=== PATIENT | female | born 1985 | race Caucasian/White ===

== ENCOUNTER 2016-12-23 22:43 | Emergency (ER) | payer SELFPAY ==
[~2016-12-23] VITALS: Ht 170.2 cm; Wt 89.0 kg
[2016-12-23 22:45] VITALS: BP 177/103; PULSE 98; RESP 16; TEMP 98.9; O2SAT 100
[2016-12-23 22:48] VITALS: BP 168/88; PULSE 88; RESP 20; O2SAT 98
[2016-12-23 23:53] LABS: AUTOMATED NEUTROPHIL # 8.8 TH/MM3 (1.8-7.7); BASOPHIL % 0.3 % (0.0-2.0); EOSINOPHIL # 0.1 TH/MM3 (0-0.4); EOSINOPHIL % 0.6 % (0.0-4.0); HEMATOCRIT 41.9 % (35.0-46.0); HEMO FLAGS DIFF FINAL; LYMPH % 18.8 % (9.0-44.0); LYMPHOCYTE # 2.2 TH/MM3 (1.0-4.8); MEAN CELL VOLUME 79.6 FL (80.0-100.0); MEAN CORPUSCULAR HEMOGLOBIN 25.9 PG (27.0-34.0); MEAN CORPUSCULAR HGB CONC 32.5 % (32.0-36.0); MONO % 5.5 % (0.0-8.0); NEUT % 74.8 % (16.0-70.0); PLATELET COUNT 339 TH/MM3 (150-450); RED BLOOD COUNT 5.26 MIL/MM3 (4.00-5.30); RED CELL DISTRIBUTION WIDTH 16.2 % (11.6-17.2); WHITE BLOOD COUNT 11.8 TH/MM3 (4.0-11.0)
--- NOTE | 2016-12-23 23:55 | PD ---
HPI Chief Complaint: Psychiatric Symptoms Time Seen by Provider: 23:48 Travel History International Travel<30 days: No Contact w/Intl Traveler<30days: No Traveled to known affect area: No History of Present Illness HPI 31-year-old white female presents to emergency department for psychological evaluation. She states that she's been feeling increasingly depressed and having suicidal thoughts. She states that she suffers from depression and anxiety. She moved from [place] to [place] one month ago. She states that she came to [place] to be with her boyfriend who lives in [place]. She states that he has a history of substance abuse. He is addicted to methamphetamine. She states that he has been trying to kick the habit and has been becoming distant and she feels that this is stressing their relationship. This has caused her to feel more depressed. She states that she herself had a history of substance abuse but has been off drugs now for the last few years. She used to do cocaine. Patient currently states that she does not want to live anymore. She has no active plan on self-harm. She does smoke cigarettes and drink alcohol on occasion. She states that her last period was irregular and could be . She has had some nausea. She denies any fever chills. No chest pain or shortness of breath. No vomiting. No abdominal pain. No urine symptoms. No toxic ingestions. PFSH Past Medical History Narrative Medical Depression, anxiety, pulmonic stenosis, valvular heart disease with reflux, substance abuse, history of seizures Depression: Yes Cardiovascular Problems: Yes (PULMONARY STENOSIS) Seizures: Yes Tetanus Vaccination: < 5 Years Influenza Vaccination: No ?: Not Past Surgical History Narrative Surgical Laparoscopy for ovarian cysts Gynecologic Surgery: Yes Social History Alcohol Use: Yes Tobacco Use: Yes Substance Use: No Allergies-Medications (Allergen,Severity, Reaction): Coded Allergies: Keflex (Verified Allergy, Intermediate, 12/23/16) Reported Meds & Prescriptions Reported Meds & Active Scripts Active No Active Prescriptions or Reported Medications Review of Systems Except as stated in HPI: all other systems reviewed are Neg Psychiatric: Positive: Anxiety, Depression, Suicidal Ideations, Mood Disorder, No: Disorder of Thought, Substance Abuse, Homicidal Ideation Physical Exam Narrative GENERAL: Well-nourished, well-developed patient. SKIN: Warm and dry. HEAD: Normocephalic and atraumatic. EYES: No scleral icterus. No injection or drainage. ENT: No nasal drainage noted. Mucous membranes pink. Airway patent. NECK: Supple, trachea midline. Moves head freely without obvious discomfort. CARDIOVASCULAR: Regular rate and rhythm without murmurs, gallops, or rubs. RESPIRATORY: Breath sounds equal bilaterally. No accessory muscle use. GASTROINTESTINAL: Abdomen soft, non-tender, nondistended. EXTREMITIES: No cyanosis or edema. BACK: Nontender without obvious deformity. No CVA tenderness. NEURO: Patient is alert and oriented. no sensorimotor deficits. Nonfocal. Normal speech. PSYCH: No delusions. No auditory or visual hallucinations. Data Data Last Documented VS Vital Signs Date Time Temp Pulse Resp B/P Pulse Ox O2 Delivery O2 Flow Rate FiO2 12/24/16 18:32 100 18 168/86 100 Room Air 12/23/16 22:45 98.9 Orders Complete Blood Count With Diff (12/23/16 23:08) Comprehensive Metabolic Panel (12/23/16 23:08) Ed Urine Pregnancytest Poc (12/23/16 23:08) Psych Screen (12/23/16 23:08) Drug Screen, Random Urine (12/23/16 23:08) Alcohol (Ethanol) (12/23/16 23:08) Salicylates (Aspirin) (12/23/16 23:08) Tylenol (Acetaminophen) (12/23/16 23:08) Lorazepam (Ativan) (12/24/16 01:00) Potassium Chloride (Kcl) (12/24/16 01:00) Diet Regular Basic (12/24/16 Breakfast) Diet Regular Basic (12/24/16 Lunch) Diet Regular Basic (12/24/16 Dinner) Lorazepam (Ativan) (12/24/16 18:00) Labs Laboratory Tests Test 12/23/16 12/24/16 23:00 00:45 White Blood Count 11.8 TH/MM3 Red Blood Count 5.26 MIL/MM3 Hemoglobin 13.6 GM/DL Hematocrit 41.9 % Mean Corpuscular Volume 79.6 FL Mean Corpuscular Hemoglobin 25.9 PG Mean Corpuscular Hemoglobin 32.5 % Concent Red Cell Distribution Width 16.2 % Platelet Count 339 TH/MM3 Mean Platelet Volume 7.4 FL Neutrophils (%) (Auto) 74.8 % Lymphocytes (%) (Auto) 18.8 % Monocytes (%) (Auto) 5.5 % Eosinophils (%) (Auto) 0.6 % Basophils (%) (Auto) 0.3 % Neutrophils # (Auto) 8.8 TH/MM3 Lymphocytes # (Auto) 2.2 TH/MM3 Monocytes # (Auto) 0.7 TH/MM3 Eosinophils # (Auto) 0.1 TH/MM3 Basophils # (Auto) 0.0 TH/MM3 CBC Comment DIFF FINAL Differential Comment Sodium Level 141 MEQ/L Potassium Level 3.2 MEQ/L Chloride Level 109 MEQ/L Carbon Dioxide Level 21.6 MEQ/L Anion Gap 10 MEQ/L Blood Urea Nitrogen 9 MG/DL Creatinine 1.10 MG/DL Estimat Glomerular Filtration 58 ML/MIN Rate Random Glucose 106 MG/DL Calcium Level 9.3 MG/DL Total Bilirubin 1.3 MG/DL Aspartate Amino Transf 11 U/L (AST/SGOT) Alanine Aminotransferase 23 U/L (ALT/SGPT) Alkaline Phosphatase 74 U/L Total Protein 7.9 GM/DL Albumin 3.7 GM/DL Salicylates Level LESS THAN 1.7 MG/DL Acetaminophen Level LESS THAN 2.0 MCG/ML Ethyl Alcohol Level LESS THAN 3 MG/DL Urine Opiates Screen NEG Urine Barbiturates Screen NEG Urine Amphetamines Screen NEG Urine Benzodiazepines Screen NEG Urine Cocaine Screen NEG Urine Cannabinoids Screen NEG MDM Medical Decision Making Medical Screen Exam Complete: Yes Emergency Medical Condition: Yes Medical Record Reviewed: Yes Interpretation(s) Laboratory Tests Test 12/23/16 12/24/16 23:00 00:45 White Blood Count 11.8 TH/MM3 Red Blood Count 5.26 MIL/MM3 Hemoglobin 13.6 GM/DL Hematocrit 41.9 % Mean Corpuscular Volume 79.6 FL Mean Corpuscular Hemoglobin 25.9 PG Mean Corpuscular Hemoglobin 32.5 % Concent Red Cell Distribution Width 16.2 % Platelet Count 339 TH/MM3 Mean Platelet Volume 7.4 FL Neutrophils (%) (Auto) 74.8 % Lymphocytes (%) (Auto) 18.8 % Monocytes (%) (Auto) 5.5 % Eosinophils (%) (Auto) 0.6 % Basophils (%) (Auto) 0.3 % Neutrophils # (Auto) 8.8 TH/MM3 Lymphocytes # (Auto) 2.2 TH/MM3 Monocytes # (Auto) 0.7 TH/MM3 Eosinophils # (Auto) 0.1 TH/MM3 Basophils # (Auto) 0.0 TH/MM3 CBC Comment DIFF FINAL Differential Comment Sodium Level 141 MEQ/L Potassium Level 3.2 MEQ/L Chloride Level 109 MEQ/L Carbon Dioxide Level 21.6 MEQ/L Anion Gap 10 MEQ/L Blood Urea Nitrogen 9 MG/DL Creatinine 1.10 MG/DL Estimat Glomerular Filtration 58 ML/MIN Rate Random Glucose 106 MG/DL Calcium Level 9.3 MG/DL Total Bilirubin 1.3 MG/DL Aspartate Amino Transf 11 U/L (AST/SGOT) Alanine Aminotransferase 23 U/L (ALT/SGPT) Alkaline Phosphatase 74 U/L Total Protein 7.9 GM/DL Albumin 3.7 GM/DL Salicylates Level LESS THAN 1.7 MG/DL Acetaminophen Level LESS THAN 2.0 MCG/ML Ethyl Alcohol Level LESS THAN 3 MG/DL Urine Opiates Screen NEG Urine Barbiturates Screen NEG Urine Amphetamines Screen NEG Urine Benzodiazepines Screen NEG Urine Cocaine Screen NEG Urine Cannabinoids Screen NEG Differential Diagnosis MDM: High Differential diagnoses: Schizophrenia, schizoaffective disorder, bipolar, anxiety, depression, adjustment reaction, mood disorder NOS, ODD, depressive disorder NOS, dementia, dementia with agitation, psychosis NOS, substance induced mood disorder, intermittent explosive disorder, Asperger syndrome, infection,electrolyte abnormality, malingering. Narrative Course Mental health screening discussed with the patient. Psychiatric screen ordered. The patient is been medically cleared. Medical clearance Diagnosis Primary Impression: Medical clearance for psychiatric admission Scripts No Active Prescriptions or Reported Meds Condition: Stable Jase Vitale Dec 23, 2016 23:55 Jase Vitale Dec 23, 2016 23:55
[2016-12-24 00:07] LABS: ALT (GPT) 23 U/L (10-53); ANION GAP 10 MEQ/L (5-15); AST (GOT) 11 U/L (15-37); BICARBONATE 21.6 MEQ/L (21.0-32.0); BLOOD UREA NITROGEN 9 MG/DL (7-18); CHLORIDE 109 MEQ/L (98-107); GLOMERULAR FILTRATION RATE 58 ML/MIN (>89); POTASSIUM 3.2 MEQ/L (3.5-5.1); SODIUM (NA) 141 MEQ/L (136-145)
[2016-12-24 00:10] LABS: ALKALINE PHOSPHATASE 74 U/L (45-117); TOTAL BILIRUBIN ADULT 1.3 MG/DL (0.2-1.0)
[2016-12-24 00:14] LABS: ACETAMINOPHEN LESS THAN 2.0 MCG/ML (10.0-30.0)
[2016-12-24] MEDS ORDERED: LORazepam 1 MG TAB PO ONE ×2 (01:00→18:00)
[2016-12-24] MEDS ORDERED: POTASSIUM CHLORIDE 20 MEQ CONTROLLED RELEASE TAB PO ONE (01:00)
[2016-12-24 01:20] LABS: AMPHETAMINE, URINE NEG (NEG); BARBITURATES, URINE NEG (NEG); COCAINE, URINE NEG (NEG)
[2016-12-24 03:33] VITALS: BP 142/82; PULSE 82; RESP 15; O2SAT 99
[2016-12-24 06:11] VITALS: BP 131/73; PULSE 89; RESP 18
[2016-12-24 10:45] VITALS: BP 120/78; PULSE 89; RESP 18; O2SAT 99
[2016-12-24 18:32] VITALS: BP 168/86; PULSE 100; RESP 18; O2SAT 100
--- NOTE | 2016-12-25 06:24 | MB ---
cc: FRANCISCO J CREWS DATE OF CONSULTATION 12/24/2016 PHYSICIAN REQUESTING CONSULTATION Emergency department. REASON FOR CONSULTATION Voluntary psychiatric evaluation. HISTORY OF PRESENT ILLNESS Ms. Solorio is a 31-year-old female who presented to the emergency department for voluntary psychiatric evaluation. She told the emergency department physician that she was feeling increasingly depressed and having suicidal thoughts. Reviewing the electronic medical record, I see no prior psychiatric contact within our system. It appears this is the patient's first visit to [place]. The patient was seen and examined, chart reviewed, her case discussed with nursing staff. There has been no evidence of any suicidality or homicidality despite over 18 hours of observation in the emergency department. On my evaluation today, the patient reports that she is starting to feel better. She apparently was feeling acutely distressed because she had come down from [place] to be with her boyfriend, but her boyfriend is addicted to methamphetamines and she no longer wishes to be with him. She says that she has been on the telephone with her mother while in the emergency department and has made plans to return to her home in [place] where she will be surrounded by family and friends. She does admit to feeling somewhat depressed and anxious by her circumstance but I can elicit no symptoms consistent with severe depression, nor are there any hypomanic or manic symptoms. She denies any suicidal or homicidal ideation, intent or plan on direct questioning. She says that she will feel better when she gets out of the current situation and back to [place] and says that she wants to live for her mother, family and friends. She denies any audiovisual hallucinations and I can elicit no delusional beliefs. The remainder of the psychiatric ROS is negative. The patient is requesting discharge from the psychiatric emergency room. Her plan is to have her mother buy her a hotel room for the night and to board a plane tomorrow to head back to [place]. PAST PSYCHIATRIC HISTORY The patient reports a history of depression. She has seen a counselor in the past but is not currently seeing a psychiatrist nor is she on any psychotropic medications. The patient denies any history of psychiatric admissions or suicide attempts. FAMILY HISTORY The patient denies any family history of serious mental illness, substance use disorder or suicide. CHEMICAL DEPENDENCY HISTORY The patient endorses a history of alcohol and cocaine abuse but denies any current substance use. Toxicology here was negative and alcohol level undetectable. SOCIAL HISTORY The patient is from [place]. She has been down in the [facility] for about a month staying with her boyfriend. She is high school educated and does "odds and ends jobs." She is single. She has no children and had a stillborn daughter in March. She denies any or legal history. Denies any access to guns or firearms. She is spiritual but not evangelical. PAST MEDICAL HISTORY History of pulmonary artery stenosis. REVIEW OF SYSTEMS No reported headache, vision or hearing changes, chest pain, shortness of breath, bowel or bladder issues. No other physical complaints. PHYSICAL EXAMINATION VITAL SIGNS: Temperature 98.9, pulse 89, respirations 18, blood pressure 120/78, pulse oximetry 99% on room air. Physical examination completed by the ED provider. On my examination today, the patient appears to be in no acute physical distress. No motor abnormalities noted. LABORATORY Reviewed - CBC is significant for mildly elevated white blood cell count at 11.8. CMP is significant for mild hypokalemia and mildly decreased GFR. Toxicology is negative and alcohol level undetectable as I said. MENTAL STATUS EXAMINATION The patient is in hospital gown. She is fairly well-groomed and appears to be attending to basic hygiene and basic needs. No motor abnormalities noted. She is awake, alert and oriented x 3. No evidence of delirium. Speech is within normal limits for rate, tone and volume. Language and fund of knowledge seem average. Mood is mildly dysphoric but not severely depressed and affect is restricted and consistent with stated mood. Thought process linear. No loosening of associations. No evident delusions. Denies audiovisual hallucinations. Denies suicidal or homicidal ideation. Insight and judgment are fair. ASSESSMENT AND PLAN 1. Adjustment disorder with mixed depression and anxiety, F43.23. This is a 31-year-old female with psychiatric history as detailed above who presents on a voluntary basis for psychiatric evaluation. On my examination today, the patient does report some mild depression and anxiety related to her circumstance. She denies any suicidal or homicidal ideation. She appears to be attending to her basic needs. I can detect no severely unstable mood, anxiety or psychotic disorder in this patient at this time. Putting of all this information together and weighing the acute, chronic, and protective factors and based on the available evidence, I leaf conditioner to a reasonable degree of medical certainty that the patient is at low imminent risk of harm to self or others from a mental illness as defined under the Garcia Act and her level of function is adequate for outpatient care. Consequently, the patient does not meet Garcia Act criteria. Given that she does not meet Garcia Act criteria and is requesting discharge from the ED today, I must recommend her discharge from the psychiatric standpoint. I have recommended that the patient follow up with a psychiatric provider when she returns home to [place] or here in the area if she should remain here for any length of time. Nurse to provide the appropriate referrals. I have counseled the patient regarding warning signs for need to return to the psychiatric emergency room as part of a general safety plan. The patient is otherwise psychiatrically cleared for discharge. Thank you very much for this consultation. Francisco J Crews DC/CHARANJIT /5:57 PM /6:14 AM TRISTIN
== END 2016-12-24 20:58 | disposition home or self-care (01) ==
LOC: NEPD 22:43 → NEPJ 12-24 20:58
DX: F43.23 Adjustment disorder with mixed anxiety and depressed mood (principal); F17.210 Nicotine dependence, cigarettes, uncomplicated
CPT/HCPCS: 80053; 80307; 84703; 85025; 99284

== ENCOUNTER 2018-10-11 14:20 | Inpatient (IN) ==
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
[2018-10-11] MEDS ORDERED: Aluminum/Magnesium/Simethacone Susp 30 ML UDC PO PRN (18:25)
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
[2018-10-11] MEDS: Senna/Docusate Sodium 8.6/50 MG Tablet PO SCH (22:01)
[2018-10-12] MEDS: Senna/Docusate Sodium 8.6/50 MG Tablet PO SCH ×2 (09:00→21:36)
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
[2018-10-13 06:06] VITALS: BP 125/73; PULSE 88; RESP 16; TEMP 97.3; O2SAT 97
[2018-10-13] MEDS: Senna/Docusate Sodium 8.6/50 MG Tablet PO SCH (09:19)
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
== END 2018-10-13 12:30 | disposition home or self-care (01) | DRG 881 ==
LOC: NEPJ 14:20 → NEDA 18:39 → H260 19:13 → NEDA 19:13
PROVIDERS: ADMIT Psychiatry & Neurology Child & Adolescent Psychiatry; ATTEND Psychiatry & Neurology Child & Adolescent Psychiatry